=== PATIENT | female | born 1960 | race Two or more races ===

== ENCOUNTER 2017-05-03 11:55 | Inpatient (IN) | payer OTHER ==
[~2017-05-03] VITALS: Ht 157.5 cm; Wt 77.6 kg
[2017-05-03] VITALS (7 sets, daily range): BP systolic 132–162; BP diastolic 70–85
[2017-05-03] MEDS ORDERED: Metoclopramide 10mg/2ml Inj IVP ONE (12:15)
--- NOTE | 2017-05-03 12:24 | Emergency Room Report ---
History of Present Illness General Chief Complaint: Abdominal Pain Source: Patient (ANITA AUSTIN D.O.) Present Illness HPI Patient has eyes with complaints of vomiting she also reports left lower abdominal pain Symptoms started yesterday and progressed this morning denies any fevers denies any chest pain shortness of breath Denies any blood in the stool Pain is 5/10 sharp denies any other radiation denies any travel or trauma (ANITA AUSTIN D.O.) Allergies: Coded Allergies: No Known Allergies (Unverified , 05/03/17) Patient History Past Medical History: see triage record Pertinent Family History: none Reviewed Nursing Documentation: PMH: Agreed, PSxH: Agreed (ANITA AUSTIN D.O.) Nursing Documentation-PMH Past Medical History: No History, Except For Hx Hypertension: Yes Hx Diabetes: Yes (ANITA AUSTIN D.O.) Review of Systems All Other Systems: negative except mentioned in HPI (ANITA AUSTIN D.O.) Physical Exam Vital Signs Date Time Temp Pulse Resp B/P (MAP) Pulse Ox O2 Delivery O2 Flow Rate FiO2 05/03/17 11:49 98.2 65 14 167/87 99 Room Air Sp02 EP Interpretation: reviewed, normal General Appearance: no apparent distress Head: normocephalic, atraumatic Eyes: bilateral eye PERRL, bilateral eye EOMI ENT: hearing grossly normal, normal pharynx, TMs + canals normal, uvula midline Neck: full range of motion, supple, no meningismus, no bony tend Respiratory: lungs clear, normal breath sounds, no rhonchi, no respiratory distress, no retraction, no accessory muscle use Cardiovascular #1: normal peripheral pulses, regular rate, rhythm, no edema, no gallop, no JVD, no murmur Gastrointestinal: normal bowel sounds, soft, no mass, no organomegaly, non- distended, no guarding, no hernia, no pulsatile mass, no rebound, tenderness - Discomfort palpated left lower abdomen Genitourinary: no CVA tenderness Musculoskeletal: normal inspection Neurologic: oriented x3, responsive, firearms inspector III-XII nml as tested, motor strength/ tone normal, sensory intact Psychiatric: mood/affect normal Skin: normal color, no rash, warm/dry, palpation normal Lymphatic: normal inspection, no adenopathy (ANITA AUSTIN D.O.) Medical Decision Making Diagnostic Impression: Primary Impression: Renal calculus, left Additional Impressions: Hydronephrosis Perinephric fluid collection ER Course Patient was noted to have increased pain to the left flank. CT the abdomen pelvis read by radiologist a 3 mm kidney stone with left-sided perinephric fluid. A urinalysis noted to have some evidence of infection.Patient was discussed with Dr. Aditya Dewey for capitated facility transfer to [facility]. The patient's HMO was unable to arrange a timely transfer. Patient was subsequently [facility] Last Vital Signs Date Time Temp Pulse Resp B/P (MAP) Pulse Ox O2 Delivery O2 Flow Rate FiO2 05/03/17 11:49 98.2 65 14 167/87 99 Room Air (ANITA AUSTIN D.O.) Status: unchanged (Law Guthrie) Disposition: XFER SHT-TRM HOSP Condition: Serious Scripts No Active Prescriptions or Reported Meds ANITA AUSTIN D.O. May 03, 2017 12:24 Law Guthrie May 03, 2017 16:19
[2017-05-03] MEDS ORDERED: Morphine Sulfate 4mg/ml Inj IVP ONE (12:45)
[2017-05-03 12:55] LABS: BASOPHILS % (AUTO) 0.6 % (0.0-2.0); EOSINOPHILS % (AUTO) 0.1 % (0.0-3.0); LYMPHOCYTES % (AUTO) 12.3 % (20.0-45.0); MEAN CORPUSCULAR HEMOGLOBIN 32.9 PG (27.0-31.0); MEAN CORPUSCULAR HGB CONC 34.8 G/DL (32.0-36.0); MEAN CORPUSCULAR VOLUME 95 FL (80-99); MEAN PLATELET VOLUME 8.2 FL (6.5-10.1); MONOCYTES % (AUTO) 5.8 % (1.0-10.0); NEUTROPHILS % (AUTO) 81.2 % (45.0-75.0); PLATELET COUNT 220 K/UL (150-450); RED BLOOD COUNT 4.92 M/UL (4.20-5.40); RED CELL DISTRIBUTION WIDTH 10.7 % (11.6-14.8); WHITE BLOOD COUNT 10.1 K/UL (4.8-10.8)
[2017-05-03 13:05] LABS: ANION GAP 10 mmol/L (5-15); CALCIUM 8.9 MG/DL (8.5-10.1); CARBON DIOXIDE 26 MMOL/L (21-32); CHLORIDE 102 MMOL/L (98-107); CREATININE 1.1 MG/DL (0.55-1.30); GLOMERULAR FILTRATION RATE 51.6 mL/min (>60); SODIUM 138 MMOL/L (136-145)
[2017-05-03 13:09] LABS: ALANINE AMINOTRANSFERASE 46 U/L (12-78); ASPARTATE AMINO TRANSFERASE 29 U/L (15-37); LIPASE 150 U/L (73-393); TOTAL PROTEIN 7.5 G/DL (6.4-8.2)
[2017-05-03 13:53] LABS: APPEARANCE,URINE SLIGHTLY CLOUDY; KETONES,URINE 2+ (NEGATIVE); LEUKOCYTE ESTERASE ,URINE 2+ (NEGATIVE); NITRITE,URINE NEGATIVE (NEGATIVE); PH,URINE 7 (4.5-8.0); PROTEIN,URINE NEGATIVE (NEGATIVE); UROBILINOGEN,URINE NORMAL MG/DL (0.0-1.0)
[2017-05-03 14:13] LABS: BACTERIA,URINE OCCASIONAL /HPF; SQUAMOUS EPITHELIAL CELL,UR OCCASIONAL /LPF (NONE/OCC)
[2017-05-03] MEDS ORDERED: cefTRIAXone 1 GM in NS 55 ML IVPB ONE (14:30)
--- NOTE | 2017-05-03 15:06 | Diagnostic Imaging Report ---
Indication: Abdominal pain Technique: Continuous helical transaxial imaging of the abdomen and pelvis was obtained from the lung bases to the pubic symphysis during intravenous contrast administration. Coronal 2-D reformats were also obtained. Study obtained in a Siemens sensation [address] Automatic Exposure Control was utilized. Total Dose length Product (DLP): [address] Dose Index Volume (CTDIvol): 18.84, 0.15 mGy Comparison: None Findings: Mild subsegmental atelectasis at the lung bases demonstrated. The liver is moderately hypodense consistent with fatty infiltration. Gallbladder is unremarkable. Spleen and pancreas are unremarkable. There is no adrenal mass. There is a 3 mm stone at the left UVJ associated with mild left hydroureter and left perinephric fluid. There is also some delay in enhancement of the left kidney due to the obstruction. No other stones seen within either kidney or collecting system. Normal appendix noted. There are in the right lower quadrant of the abdomen, there is mass 5.8 x 5 x 5.2 CM. The mass may be arising from the fundus of the uterus projecting toward the right side or may be ovarian in nature. The right ovary is probably seen adjacent to the mass. In addition within the central part of the uterus there is suggestion of a 1.8 cm mass which may be a endometrial polyp or perhaps submucosal fibroid. The left ovary is seen and appears normal. Evaluation with ultrasound is suggested. The findings are incidental and evaluation may be performed on a nonemergent outpatient basis. Impression: Mild left hydronephrosis/hydroureter secondary to a 3 mm stone at the UVJ. Associated delayed enhancement of the left kidney and perinephric/ureteral fluid. Incidental 5.8 cm mass in the right hemipelvis region probably a subserosal fibroid. Differential includes an ovarian mass. Further evaluation with ultrasound and/or MRI may be helpful and suggested to be performed on an outpatient, nonemergent basis in the context of a GENERAL OPHTHALMOLOGIST clinical evaluation. Moderate fatty liver. Small hiatal hernia. Mild basilar atelectasis. The CT scanner at [facility] is accredited by the [employer] and the scans are performed using dose optimization techniques as appropriate to a performed exam including Automatic Exposure control.
[2017-05-03] MEDS ORDERED: Mylanta II UD 30ml ORAL PRN (18:15)
[2017-05-03] MEDS ORDERED: Miralax 17gm pkt ORAL PRN (18:15)
[2017-05-03] MEDS ORDERED: Nitroglycerin Subl 0.4mg tab SL PRN (18:15)
[2017-05-03] MEDS: D5 1/2NS 1,000 ML IV SCH (18:45)
[2017-05-03] MEDS ORDERED: NKM (19:01)
[2017-05-03] MEDS: Heparin 5000 units/ml inj SUBQ SCH (21:00)
[2017-05-04 04:30] VITALS: BP 140/78
[2017-05-04 07:40] LABS: BASOPHILS % (AUTO) 0.8 % (0.0-2.0); EOSINOPHILS % (AUTO) 0.8 % (0.0-3.0); LYMPHOCYTES % (AUTO) 22.5 % (20.0-45.0); MEAN CORPUSCULAR HEMOGLOBIN 33.4 PG (27.0-31.0); MEAN CORPUSCULAR HGB CONC 35.8 G/DL (32.0-36.0); MEAN CORPUSCULAR VOLUME 94 FL (80-99); MEAN PLATELET VOLUME 7.9 FL (6.5-10.1); NEUTROPHILS % (AUTO) 68.9 % (45.0-75.0); PLATELET COUNT 204 K/UL (150-450); RED BLOOD COUNT 4.71 M/UL (4.20-5.40); RED CELL DISTRIBUTION WIDTH 10.7 % (11.6-14.8); WHITE BLOOD COUNT 7.5 K/UL (4.8-10.8)
[2017-05-04 07:50] LABS: ALANINE AMINOTRANSFERASE 40 U/L (12-78); ALBUMIN/GLOBULIN RATIO 0.9 (1.0-2.7); AMYLASE 29 U/L (25-115); ANION GAP 9 mmol/L (5-15); ASPARTATE AMINO TRANSFERASE 20 U/L (15-37); CALCIUM 8.8 MG/DL (8.5-10.1); CARBON DIOXIDE 28 MMOL/L (21-32); CHLORIDE 105 MMOL/L (98-107); CREATININE 0.7 MG/DL (0.55-1.30); GLOMERULAR FILTRATION RATE > 60 mL/min (>60); POTASSIUM 3.5 MMOL/L (3.5-5.1); SODIUM 141 MMOL/L (136-145); TOTAL PROTEIN 6.9 G/DL (6.4-8.2)
[2017-05-04] MEDS: D5 1/2NS 1,000 ML IV SCH (08:05)
--- NOTE | 2017-05-04 08:33 | History and Physical ---
History of Present Illness General Date patient seen: May 03, 2017 Reason for Hospitalization: Abdominal Pain Present Illness HPI 56 year old female with hx of DM and HTN presented to ER with complaints of vomiting she also reports left lower abdominal pain Symptoms started yesterday and progressed this morning denies any fevers denies any chest pain shortness of breath she had a CT in Er showing minimal uretral stone. Allergies: Coded Allergies: No Known Allergies (Unverified , 05/03/17) Medication History Scheduled No Known Medications* (NKM - No Known Medications*), 0 ., (Reported) Patient History Healthcare decision maker Resuscitation status Advanced Directive on File Past Medical/Surgical History Past Medical/Surgical History: (1) Diabetes mellitus (2) Hypertension Review of Systems All Other Systems: negative except mentioned in HPI Physical Exam General Appearance: WD/WN, no apparent distress Lines, tubes and drains: peripheral HEENT: normocephalic, atraumatic Neck: non-tender, normal alignment Respiratory/Chest: chest wall non-tender, lungs clear Cardiovascular/Chest: normal peripheral pulses, normal rate Abdomen: normal bowel sounds Genitourinary/Rectal: normal genital exam Last 24 Hour Vital Signs Date Time Temp Pulse Resp B/P (MAP) Pulse Ox O2 Delivery O2 Flow Rate FiO2 05/04/17 04:30 98.8 78 18 140/78 98 Room Air 05/03/17 20:20 98.6 75 14 132/78 98 Room Air 05/03/17 19:45 98.6 75 14 132/78 98 Room Air 05/03/17 17:45 98.7 74 14 136/70 98 Room Air 05/03/17 16:20 98.4 72 15 152/82 98 Room Air 05/03/17 15:15 98.1 70 14 148/82 98 Room Air 05/03/17 14:05 98.4 68 14 152/82 99 Room Air 05/03/17 13:20 98.2 05/03/17 13:00 98.3 62 14 155/82 97 Room Air 05/03/17 12:15 98.4 66 14 162/85 98 Room Air 05/03/17 11:49 98.2 65 14 167/87 99 Room Air Laboratory Tests Test 05/03/17 12:20 05/03/17 13:25 05/04/17 06:45 White Blood Count 10.1 K/UL (4.8-10.8) 7.5 K/UL (4.8-10.8) Red Blood Count 4.92 M/UL (4.20-5.40) 4.71 M/UL (4.20-5.40) Hemoglobin 16.2 G/DL (12.0-16.0) H 15.7 G/DL (12.0-16.0) Hematocrit 46.5 % (37.0-47.0) 44.0 % (37.0-47.0) Mean Corpuscular Volume 95 FL (80-99) 94 FL (80-99) Mean Corpuscular Hemoglobin 32.9 PG (27.0-31.0) H 33.4 PG (27.0-31.0) H Mean Corpuscular Hemoglobin Concent 34.8 G/DL (32.0-36.0) 35.8 G/DL (32.0-36.0) Red Cell Distribution Width 10.7 % (11.6-14.8) L 10.7 % (11.6-14.8) L Platelet Count 220 K/UL (150-450) 204 K/UL (150-450) Mean Platelet Volume 8.2 FL (6.5-10.1) 7.9 FL (6.5-10.1) Neutrophils (%) (Auto) 81.2 % (45.0-75.0) H 68.9 % (45.0-75.0) Lymphocytes (%) (Auto) 12.3 % (20.0-45.0) L 22.5 % (20.0-45.0) Monocytes (%) (Auto) 5.8 % (1.0-10.0) 7.0 % (1.0-10.0) Eosinophils (%) (Auto) 0.1 % (0.0-3.0) 0.8 % (0.0-3.0) Basophils (%) (Auto) 0.6 % (0.0-2.0) 0.8 % (0.0-2.0) Sodium Level 138 MMOL/L (136-145) 141 MMOL/L (136-145) Potassium Level 4.0 MMOL/L (3.5-5.1) 3.5 MMOL/L (3.5-5.1) Chloride Level 102 MMOL/L (98-107) 105 MMOL/L (98-107) Carbon Dioxide Level 26 MMOL/L (21-32) 28 MMOL/L (21-32) Anion Gap 10 mmol/L (5-15) 9 mmol/L (5-15) Blood Urea Nitrogen 12 mg/dL (7-18) 10 mg/dL (7-18) Creatinine 1.1 MG/DL (0.55-1.30) 0.7 MG/DL (0.55-1.30) Estimat Glomerular Filtration Rate 51.6 mL/min (>60) > 60 mL/min (>60) Glucose Level 331 MG/DL (74-106) H 278 MG/DL (74-106) H Calcium Level 8.9 MG/DL (8.5-10.1) 8.8 MG/DL (8.5-10.1) Total Bilirubin 0.6 MG/DL (0.2-1.0) 0.7 MG/DL (0.2-1.0) Aspartate Amino Transf (AST/SGOT) 29 U/L (15-37) 20 U/L (15-37) Alanine Aminotransferase (ALT/SGPT) 46 U/L (12-78) 40 U/L (12-78) Alkaline Phosphatase 114 U/L (46-116) 95 U/L (46-116) Total Protein 7.5 G/DL (6.4-8.2) 6.9 G/DL (6.4-8.2) Albumin 3.8 G/DL (3.4-5.0) 3.3 G/DL (3.4-5.0) L Globulin 3.7 g/dL 3.6 g/dL Albumin/Globulin Ratio 1.0 (1.0-2.7) 0.9 (1.0-2.7) L Lipase 150 U/L (73-393) Urine Color Pale yellow Urine Appearance Slightly cloudy Urine pH 7 (4.5-8.0) Urine Specific [place] 1.005 (1.005-1.035) Urine Protein Negative (NEGATIVE) Urine Glucose (UA) 4+ (NEGATIVE) H Urine Ketones 2+ (NEGATIVE) H Urine Occult Blood 1+ (NEGATIVE) H Urine Nitrite Negative (NEGATIVE) Urine Bilirubin Negative (NEGATIVE) Urine Urobilinogen Normal MG/DL (0.0-1.0) Urine Leukocyte Esterase 2+ (NEGATIVE) H Urine RBC 2-4 /HPF (0 - 2) H Urine WBC 5-10 /HPF (0 - 2) H Urine Squamous Epithelial Cells Occasional /LPF Urine Bacteria Occasional /HPF (NONE) Activated Partial Thromboplast Time 25 SEC (23-33) Amylase Level 29 U/L (25-115) Height (Feet): 5 Height (Inches): 2.00 Weight (Pounds): 171 Medications Current Medications Medications (Trade) Dose Ordered Sig/Micheal Route PRN Reason Start Time Stop Time Status Last Admin Dose Admin Acetaminophen (Tylenol) 650 mg Q4H PRN ORAL fever 05/03/17 18:15 06/02/17 18:14 Al Hydroxide/Mg Hydroxide (Mylanta II) 30 ml Q6H PRN ORAL dyspepsia 05/03/17 18:15 06/02/17 18:14 Ceftriaxone Sodium 1 gm/ Dextrose 55 ml @ 110 mls/hr Q24H IVPB 05/04/17 14:30 05/11/17 14:29 Dextrose (Dextrose 50%) STAT PRN IV Hypoglycemia 05/03/17 18:15 06/02/17 18:14 Dextrose/Sodium Chloride 1,000 ml @ 75 mls/hr [id number] IV 05/03/17 18:45 06/02/17 18:44 05/03/17 18:45 Diphenhydramine HCl (Benadryl) 25 mg Q6H PRN ORAL Itching/Pruritis 05/03/17 18:15 06/02/17 18:14 Heparin Sodium (Porcine) (Heparin 5000 units/ml) 5,000 units EVERY 12 HOURS SUBQ 05/03/17 21:00 06/02/17 20:59 Nitroglycerin (Ntg) 0.4 mg Q5M X 3 DOSES PRN SL Prn Chest Pain 05/03/17 18:15 06/02/17 18:14 Ondansetron HCl (Zofran) 4 mg Q6H PRN IVP Nausea & Vomiting 05/03/17 18:15 06/02/17 18:14 Polyethylene Glycol (Miralax) 17 gm HSPRN PRN ORAL Constipation 05/03/17 18:15 06/02/17 18:14 Temazepam (Restoril) 15 mg HSPRN PRN ORAL Insomnia 05/03/17 18:15 05/10/17 18:14 Assessment/Plan Problem List: (1) Renal calculus, left ICD Codes: N20.0 - Calculus of kidney SNOMED: 03769153 (2) Hydronephrosis ICD Codes: N13.30 - Unspecified hydronephrosis SNOMED: 17230669 (3) Diabetes mellitus ICD Codes: E11.9 - Type 2 diabetes mellitus without complications SNOMED: 94120752 (4) Hypertension ICD Codes: I10 - Essential (primary) hypertension SNOMED: 76123710 Assessment/Plan npo symptomatic treatment IV fluid pain control TWAN ESTRADA May 04, 2017 08:33
--- NOTE | 2017-05-04 08:34 | Pulmonology Progress Note ---
Assessment/Plan Problems: (1) Renal calculus, left (2) Hydronephrosis (3) Diabetes mellitus (4) Hypertension Assessment/Plan asymptomatic wants to go home outpatient and electrotyper evaluation report of CT given to the patient Subjective ROS Limited/Unobtainable: No Constitutional: Reports: no symptoms HEENT: Repors: no symptoms Allergies: Coded Allergies: No Known Allergies (Unverified , 05/03/17) Objective Last 24 Hour Vital Signs Date Time Temp Pulse Resp B/P (MAP) Pulse Ox O2 Delivery O2 Flow Rate FiO2 05/04/17 04:30 98.8 78 18 140/78 98 Room Air 05/03/17 20:20 98.6 75 14 132/78 98 Room Air 05/03/17 19:45 98.6 75 14 132/78 98 Room Air 05/03/17 17:45 98.7 74 14 136/70 98 Room Air 05/03/17 16:20 98.4 72 15 152/82 98 Room Air 05/03/17 15:15 98.1 70 14 148/82 98 Room Air 05/03/17 14:05 98.4 68 14 152/82 99 Room Air 05/03/17 13:20 98.2 05/03/17 13:00 98.3 62 14 155/82 97 Room Air 05/03/17 12:15 98.4 66 14 162/85 98 Room Air 05/03/17 11:49 98.2 65 14 167/87 99 Room Air General Appearance: WD/WN HEENT: normocephalic, anicteric Respiratory/Chest: lungs clear Cardiovascular: normal rate, regular rhythm Abdomen: soft, non tender, no organomegaly Extremities: no clubbing Skin: no rash Laboratory Tests 05/03/17 12:20: White Blood Count 10.1, Red Blood Count 4.92, Hemoglobin 16.2H, Hematocrit 46.5 , Mean Corpuscular Volume 95, Mean Corpuscular Hemoglobin 32.9H, Mean Corpuscular Hemoglobin Concent 34.8, Red Cell Distribution Width 10.7L, Platelet Count 220, Mean Platelet Volume 8.2, Neutrophils (%) (Auto) 81.2H, Lymphocytes (%) (Auto) 12.3L, Monocytes (%) (Auto) 5.8, Eosinophils (%) (Auto) 0.1, Basophils (%) (Auto) 0.6, Sodium Level 138, Potassium Level 4.0, Chloride Level 102, Carbon Dioxide Level 26, Anion Gap 10, Blood Urea Nitrogen 12, Creatinine 1.1, Estimat Glomerular Filtration Rate 51.6, Glucose Level 331H, Calcium Level 8.9, Total Bilirubin 0.6, Aspartate Amino Transf (AST/SGOT) 29, Alanine Aminotransferase (ALT/SGPT) 46, Alkaline Phosphatase 114, Total Protein 7.5, Albumin 3.8, Globulin 3.7, Albumin/Globulin Ratio 1.0, Lipase 150 05/03/17 13:25: Urine Color Pale yellow, Urine Appearance Slightly cloudy, Urine pH 7, Urine Specific [place] 1.005, Urine Protein Negative, Urine Glucose (UA) 4+H, Urine Ketones 2+H, Urine Occult Blood 1+H, Urine Nitrite Negative, Urine Bilirubin Negative, Urine Urobilinogen Normal, Urine Leukocyte Esterase 2+H, Urine RBC 2- 4H, Urine WBC 5-10H, Urine Squamous Epithelial Cells Occasional, Urine Bacteria Occasional 05/04/17 06:45: White Blood Count 7.5, Red Blood Count 4.71, Hemoglobin 15.7, Hematocrit 44.0, Mean Corpuscular Volume 94, Mean Corpuscular Hemoglobin 33.4H, Mean Corpuscular Hemoglobin Concent 35.8, Red Cell Distribution Width 10.7L, Platelet Count 204, Mean Platelet Volume 7.9, Neutrophils (%) (Auto) 68.9, Lymphocytes (%) (Auto) 22.5, Monocytes (%) (Auto) 7.0, Eosinophils (%) (Auto) 0.8, Basophils (%) (Auto ) 0.8, Sodium Level 141, Potassium Level 3.5, Chloride Level 105, Carbon Dioxide Level 28, Anion Gap 9, Blood Urea Nitrogen 10, Creatinine 0.7, Estimat Glomerular Filtration Rate > 60, Glucose Level 278H, Calcium Level 8.8, Total Bilirubin 0.7, Aspartate Amino Transf (AST/SGOT) 20, Alanine Aminotransferase ( ALT/SGPT) 40, Alkaline Phosphatase 95, Total Protein 6.9, Albumin 3.3L, Globulin 3.6, Albumin/Globulin Ratio 0.9L, Activated Partial Thromboplast Time 25, Amylase Level 29 Current Medications Medications (Trade) Dose Ordered Sig/Micheal Route PRN Reason Start Time Stop Time Status Last Admin Dose Admin Acetaminophen (Tylenol) 650 mg Q4H PRN ORAL fever 05/03/17 18:15 06/02/17 18:14 Al Hydroxide/Mg Hydroxide (Mylanta II) 30 ml Q6H PRN ORAL dyspepsia 05/03/17 18:15 06/02/17 18:14 Ceftriaxone Sodium 1 gm/ Dextrose 55 ml @ 110 mls/hr Q24H IVPB 05/04/17 14:30 05/11/17 14:29 Dextrose (Dextrose 50%) STAT PRN IV Hypoglycemia 05/03/17 18:15 06/02/17 18:14 Dextrose/Sodium Chloride 1,000 ml @ 75 mls/hr [id number] IV 05/03/17 18:45 06/02/17 18:44 05/03/17 18:45 Diphenhydramine HCl (Benadryl) 25 mg Q6H PRN ORAL Itching/Pruritis 05/03/17 18:15 06/02/17 18:14 Heparin Sodium (Porcine) (Heparin 5000 units/ml) 5,000 units EVERY 12 HOURS SUBQ 05/03/17 21:00 06/02/17 20:59 Nitroglycerin (Ntg) 0.4 mg Q5M X 3 DOSES PRN SL Prn Chest Pain 05/03/17 18:15 06/02/17 18:14 Ondansetron HCl (Zofran) 4 mg Q6H PRN IVP Nausea & Vomiting 05/03/17 18:15 06/02/17 18:14 Polyethylene Glycol (Miralax) 17 gm HSPRN PRN ORAL Constipation 05/03/17 18:15 06/02/17 18:14 Temazepam (Restoril) 15 mg HSPRN PRN ORAL Insomnia 05/03/17 18:15 05/10/17 18:14 TWAN ESTRADA May 04, 2017 08:34
[2017-05-04 09:00] VITALS: BP 132/78
[2017-05-04] MEDS: Heparin 5000 units/ml inj SUBQ SCH (09:52)
[2017-05-04] MEDS ORDERED: cefTRIAXone 1 GM in D5W 55 ML IVPB SCH (14:30)
--- NOTE | 2017-05-06 15:30 | Discharge Summary ---
Discharge Summary Hospital Course Date of Admission May 03, 2017 at 17:37 Date of Discharge May 04, 2017 at 12:25 Admitting Diagnosis ab pain, lft renal stone, pyelonephritis, new onse HPI Estrellita Sheehan is a 56 year old female who was admitted on May 03, 2017 at 17: 37 for Abdominal Pain, Left Renal Stone, Hospital Course dc summary #[id number] Discharge Condition Upon Discharge: stable Discharge Disposition Patient was discharged to Home () Discharge Diagnoses: Discharge Instructions Discharge Instructions Special Instructions I have been assigned to complete a D/C Summary on this account. I was not involved in the patient management Khushbu Biggs NP (Vanchtein) May 06, 2017 15:30
--- NOTE | 2017-05-07 05:45 | Discharge Summary 2 SIG ---
DATE OF ADMISSION: 05/03/2017 DATE OF DISCHARGE: 05/04/2017 REASON FOR ADMISSION: 56-year-old female with history of hypertension and diabetes, presented with complaint of left lower abdominal pain and complaints of vomiting. Symptoms started the day prior to presentation to the emergency department and became worse in the morning. Patient decided to come to the emergency department for evaluation She denied fevers, chills, shortness of breath, chest pain. No blood in the stool. CT of the abdomen and pelvis revealed mild left hydronephrosis/hydroureter secondary to 3 mm stone at the UVJ. Incidental 5.8 cm mass in the right hemipelvis region, probably subserosal fibroid. Differential could included ovarian mass. Recommended nonemergent POLYSOMNOGRAPHIC TECHNOLOGIST consult. Moderate fatty liver, mild base atelectasis. The patient was admitted with diagnosis of left renal calculus, left hydronephrosis, HOSPITAL COURSE: The patient initially was kept NPO AND started on IV fluids, pain management was provided. Renal parameters and electrolytes were closely monitored. The patient was afebrile. No leukocytosis. Stable renal parameters and electrolytes. Urinalysis revealed +2 leukocyte esterase, 5 to 10 WBC, but only occasional bacteria. Next day, the patient felt better. Diet started slowly as tolerated, able to tolerate diet. No nausea. No vomiting. Blood sugar was managed with sliding scale of insulin and was stable. DVT prophylaxis was provided. The patient was on empiric antibiotics for possible UTI. Blood pressure was stable without any antihypertensive medications at this time. The patient wanted to go home and follow up as an outpatient with the urologist and POLYSOMNOGRAPHIC TECHNOLOGIST. Copy of CD was provided to the patient. Detailed discharge instructions provided. The patient verbalized understanding of discharge instructions and importance of follow up with urologist and multi slide machine tender for further workup and management. Due to rapid and unexpected improvement in patient condition, the patient was discharged in one day. FINAL DIAGNOSES: 1. Left renal calculus. 2. Left hydronephrosis secondary to renal calculus at ureterovesical junction. 3. Diabetes mellitus. 4. Hypertension. DISCHARGE MEDICATIONS: See medication reconciliation list. DISCHARGE INSTRUCTIONS: The patient was discharged home. Follow up with the primary medical doctor per insurance as well as the urologist and POLYSOMNOGRAPHIC TECHNOLOGIST. CT abdomen and pelvis report and CD were given to the patient for further references for POLYSOMNOGRAPHIC TECHNOLOGIST and urologist. Panchito Fry M.D. I have been assigned to dictate discharge summary on this account and I was not involved in the patient's management. Khushbu Biggs (Vanchtein) NTomPTom DR: Debbie JOB#: [id number] CC: VICKIE
== END 2017-05-04 12:25 | disposition home or self-care (01) | DRG 694 ==
LOC: EDBD 11:55 → EMR 12:20 → CANBEDREQ 17:22 → 3E 17:37 → ENRESERV 17:52 → EDBEDREQ 18:56 → 3E 20:20
DX: N20.0 Calculus of kidney (principal); N13.30 Unspecified hydronephrosis; K76.0 Fatty (change of) liver, not elsewhere classified; J98.11 Atelectasis; N39.0 Urinary tract infection, site not specified; I10 Essential (primary) hypertension; E11.9 Type 2 diabetes mellitus without complications; D25.2 Subserosal leiomyoma of uterus
CPT/HCPCS: 36415; 74177; 80053; 81003; 82150; 83690; 85025; 85730; 99285; J2405; J2765